=== PATIENT | male | born 1965 ===

== ENCOUNTER 2020-11-26 13:43 | Emergency (ER) | payer SELFPAY ==
[2020-11-26 15:44] VITALS: BP 122/86
[2020-11-26] MEDS ORDERED: IBUPROFEN 800 MG TAB PO STA (16:03)
[2020-11-26] MEDS ORDERED: ACETAMINOPHEN 500 MG TAB PO STA (16:03)
--- NOTE | 2020-11-26 16:07 | Emergency Department Report ---
ED General Adult HPI - General Chief complaint: Dental/Oral Stated complaint: SWOLLEN CHEEK Time Seen by Provider: 11/26/20 15:52 Source: patient Mode of arrival: Ambulatory Limitations: Language Barrier - History of Present Illness Initial comments: 55-year-old male patient presents with complaints of left upper dental pain and facial swelling x3 days. He denies any dysphagia, fever/chills/sweats, or difficulty opening his jaw. He rates his pain as 9/10 in severity. He has not tried any OTC medications for symptoms. -: Sudden Severity scale (0 -10): 6 - Related Data Previous Rx's Medication Instructions Recorded Last Taken Type Acetaminophen/Codeine [Tylenol 1 tab PO Q8H PRN #10 tab 11/26/20 Unknown Rx /Codeine # 3 tab] Clindamycin [Clindamycin CAP] 300 mg PO Q6H 10 Days #40 cap 11/26/20 Unknown Rx Ibuprofen [Motrin 800 MG tab] 800 mg PO Q8HR PRN #20 tablet 11/26/20 Unknown Rx Allergies Allergy/AdvReac Type Severity Reaction Status Date / Time No Known Allergies Allergy Unverified 11/26/20 15:44 ED Review of Systems ROS: Stated complaint: SWOLLEN CHEEK Other details as noted in HPI Constitutional: denies: diaphoresis, fever, malaise, weakness ENT: dental pain. denies: throat pain Skin: denies: lesions, change in color Hematological/Lymphatic: denies: swollen glands ED Past Medical Hx - Medications Home Medications: Home Medications Medication Instructions Recorded Confirmed Last Taken Type Acetaminophen/Codeine [Tylenol 1 tab PO Q8H PRN #10 tab 11/26/20 Unknown Rx /Codeine # 3 tab] Clindamycin [Clindamycin CAP] 300 mg PO Q6H 10 Days #40 cap 11/26/20 Unknown Rx Ibuprofen [Motrin 800 MG tab] 800 mg PO Q8HR PRN #20 tablet 11/26/20 Unknown Rx ED Physical Exam - General Limitations: Language Barrier General appearance: alert, in no apparent distress - Head Head exam: Present: atraumatic, normocephalic - Eye Eye exam: Absent: scleral icterus - Expanded ENT Exam Expanded Mouth exam: Present: tongue normal. Absent: drooling, trismus, muffled voice 1 - Dental Tenderness (Dental abscess noted with moderate overlying facial swelling that is noncellulitic in appearance) - Respiratory Respiratory exam: Absent: respiratory distress - Cardiovascular Cardiovascular Exam: Present: regular rate - Neurological Exam Neurological exam: Present: alert, oriented X3 - Psychiatric Psychiatric exam: Present: normal affect, normal mood - Skin Skin exam: Present: warm, dry, intact, normal color. Absent: rash ED Course Vital Signs 11/26/20 15:40 Temperature 98.1 F Pulse Rate 77 Respiratory 16 Rate Blood Pressure 122/86 [Left] O2 Sat by Pulse 98 Oximetry ED Medical Decision Making - Medical Decision Making 55-year-old male patient presents with complaints of left upper dental pain and facial swelling x3 days. He denies any dysphagia, fever/chills/sweats, or difficulty opening his jaw. He rates his pain as 9/10 in severity. He has not tried any OTC medications for symptoms. Dental abscess with moderate overlying facial swelling noted. Will treat with clindamycin. Recommend follow-up with dental specialist within 2 days. Dental specialist list provided to patient. He is well-appearing, his vitals are within normal limits, he is stable for discharge home. Discussed signs and symptoms that should prompt immediate return to the emergency department in detail with patient who verbalized understanding. Critical care attestation.: If time is entered above; I have spent that time in minutes in the direct care of this critically ill patient, excluding procedure time. ED Disposition Clinical Impression: Dental abscess Disposition: 01 HOME / SELF CARE / HOMELESS Is pt being admited?: No Condition: Stable Instructions: Dental Abscess Prescriptions: Clindamycin [Clindamycin CAP] 300 mg PO Q6H 10 Days #40 cap Ibuprofen [Motrin 800 MG tab] 800 mg PO Q8HR PRN #20 tablet PRN Reason: pain Acetaminophen/Codeine [Tylenol /Codeine # 3 tab] 1 tab PO Q8H PRN #10 tab PRN Reason: Pain , Severe (7-10) Forms: Work/School Release Form(ED)
== END 2020-11-26 17:17 | disposition home or self-care (01) ==
LOC: ED 13:43
DX: K04.7 Periapical abscess without sinus (principal)
CPT/HCPCS: 99282